=== PATIENT | female | born 1980 ===

== ENCOUNTER 2025-03-18 15:06 | Emergency (ER) | payer BC, SELFPAY ==
--- NOTE | ~2025-03-18 | XR_ITS ---
EXAMINATION: XR chest 2V, 03/18/2025 15:36 CDT HISTORY: dyspnea, SOB x 3 days, weakness and cough COMPARISON: No comparisons available. Technique: 2 views obtained. Findings: Large left basilar infiltrate and effusion, underlying mass not excluded. No pneumothorax. Heart is normal size. Mediastinal and hilar contours are within normal limits. Bony thorax no acute abnormality. Impression: Left lower lobe pneumonia. CT chest with contrast is suggested Reviewed, dictated and finalized at location P. Impression: Left lower lobe pneumonia. CT chest with contrast is suggested
--- NOTE | 2025-03-18 15:10 | ECG_ITS ---
Test Date: 2025-03-18 15:30:39 Measurements Intervals [place] Rate: 113 P: 32 MA: 96 QRS: 33 QRSD: 66 T: 2 QT: 327 QTc: 449 Interpretive Statements SINUS TACHYCARDIA WITH SHORT MA INTERVAL LOW QRS VOLTAGE IN PRECORDIAL LEADS BORDERLINE ST-T WAVE ABNORMALITY- ANTEROLAT/INF LEADS BASELINE ARTIFACT- I, II, III, AVR, AVL, AVF, V1, V4-V6 ABNORMAL ECG No previous ECG available for comparison Electronically Signed On 03-18-2025 16:39:59 CDT by Kwan Dumont D.O.
[2025-03-18 15:20] VITALS: BP 154/103; PULSE 113; RESP 22; TEMP 36.6; O2SAT 99
--- NOTE | 2025-03-18 16:01 | ED.SOB ---
HPI - SOB/Dyspnea General Chief Complaint: Upper Respiratory Infection Stated Complaint: Breathing Problems/Weakness Time Seen by Provider: 03/18/25 15:45 Source: patient and RN notes reviewed Mode of arrival: ambulatory Limitations: no limitations History of Present Illness HPI Narrative: 45-year-old female presents to the [facility] complaining of shortness of breath for the last 3 days. Patient reports a nonproductive cough, tactile fevers and orthopnea. Patient reports she short of breath with exertion or when she has to talk for a prolonged period of time. Patient denies any chest pain, nausea vomiting, diarrhea, abdominal pain, any other upper respiratory symptoms, or any other symptoms. She also reports that she has lost about 10-15 lb over the last few months. Patient denies any significant past medical history. Patient denies any recent travel out of the country. Related Data Allergies Allergy/AdvReac Type Severity Reaction Status Date / Time No Known Allergies Allergy Verified 03/18/25 15:21 Review of Systems Review of Systems: CONSTITUTIONAL: Denies fever, chills, body aches, or sweats. EYES: Denies visual changes, redness, or discharge. ENT: Denies rhinorrhea, congestion, sore throat, or otalgia. CARDIOVASCULAR: Denies chest pain, palpitations, dizziness, lightheadedness, or edema. RESPIRATORY: Positive for cough, dyspnea and orthopnea. GASTROINTESTINAL: Denies abdominal pain, nausea, vomiting, or diarrhea. GENITOURINARY: Denies dysuria or hematuria. SKIN: Denies rash or itching. MUSCULOSKELETAL: Denies back pain, joint pain, or myalgia. NEUROLOGIC: Denies headache, numbness, or weakness. PSYCHIATRIC: Denies anxiety or depression. All other systems reviewed are negative, except as documented in HPI. PMFSH Comments At the time of my signature, I reviewed and agree with the nursing past medical, surgical, social, and family history. There is no relevant family history pertinent to the patient complaint. Exam Narrative: GENERAL: This is a well-nourished, well-developed adult, in no apparent distress. They are non ill-appearing, nontoxic appearing. HEAD: normocephalic, atraumatic. EYES: Sclera clear/white. Conjunctiva normal. Vision is grossly intact. Extraocular movements intact EARS: External ears normal, auditory canals clear and without drainage, TMs normal without perforation. Hearing grossly intact. NOSE: External nose normal with no obvious nasal discharge, nasal turbinates without redness, no rhinorrhea. THROAT: Mucous membranes moist, posterior pharynx clear, without erythema or swelling. Uvula midline. NECK: Neck supple, non-tender without lymphadenopathy, masses or thyromegaly. CARDIOVASCULAR: Tachycardic rate and rhythm without murmurs, gallops, or rubs. RESPIRATORY: Left mid and lower lung lung sounds are absent.. Right lung clear to auscultation. No wheezes, rales, or rhonchi. SKIN: warm, Dry, intact with no suspicious lesions or rash, good texture and turgor. NEURO: awake, alert, and oriented to person, place and time. There were no obvious focal neurologic abnormalities. EXTREMITIES: No joint tenderness, effusion, or edema noted. BACK: Nontender without deformity. Course Course Emergency Course: Portions of this record may have been created with voice recognition software Level of Care: Express Care Visit Vital Signs Vital signs: Vital Signs Temperature 97.9 F 03/18/25 15:20 Pulse Rate 113 H 03/18/25 15:20 Respiratory Rate 22 H 03/18/25 15:20 Blood Pressure 154/103 H 03/18/25 15:20 Pulse Oximetry 99 03/18/25 15:20 Oxygen Delivery Room Air 03/18/25 15:20 Temperature 97.9 F 03/18/25 15:20 Pulse Rate 113 H 03/18/25 15:20 Respiratory Rate 22 H 03/18/25 15:20 Blood Pressure 154/103 H 03/18/25 15:20 Pulse Oximetry 99 03/18/25 15:20 Oxygen Delivery Room Air 03/18/25 15:22 Reviewed Transfer Transfered to: [facility]: Other (Private vehicle) Transfer rationale: Large left pleural effusion/pneumonia. Patient requires higher level care. Accepting physician: Dr. Shahid MDM - SOB/Dyspnea MDM Narrative Medical decision making narrative: Patient's lung sounds absent to left mid/lower lung. EKG sinus tach without any ischemic findings. Chest x-ray shows large left pleural effusion with pneumonia. Patient is slightly tachycardic at 1:13 a.m., oxygen saturations are normal on 99% on room air the patient's vital signs otherwise hemodynamically stable. Given patient's symptoms and findings, it is recommend the patient seek a higher level care and proceed immediately to the emergency department. Patient is agreeable to go to [facility]. Called over to [facility] and spoke with Dr. Shahid who is aware this patient accepted the patient for transfer. Recommend the patient go by ambulance in offered her an ambulance transfer to the hospital and she declined stating her will take her via private vehicle. Advised patient if any change in condition occurs in route to the hospital to pack puller and call 911 immediately. Patient verbalized understanding. Patient advised to remain NPO and proceed immediately to the ER. Patient hemodynamically stable to transfer herself to the hospital. Differential Diagnosis Differential diagnosis: Likely congestive heart failure, community acquired pneumonia, pulmonary embolism and other (Pleural effusion, empyema, lung mass, atelectasis, pneumothorax, hemothorax) Imaging Data Radiologist's impression: ITS Impressions Chest X-Ray 03/18/25 15:46 Impression: Left lower lobe pneumonia. CT chest with contrast is suggested ECG Data EKG #1: Attestation: I personally reviewed and interpreted this ECG as follows: ECG completion date: 03/18/25 ECG completion time: 15:30 Prior ECG tracings: not available for review Interpretation: Nonspecific T abnormalities, abnormal EKG. EKG Interpretation: normal rate, tachycardia, sinus rhythm, no ectopy, no ST changes, normal QRS and normal QT Critical Care Time Critical Care Time Critical Care Time: No Discharge Plan Discharge Clinical Impression: Shortness of breath, Large pleural effusion Patient Disposition: Acute Care Hospital Condition: Stable Patient Language: Urdu Follow-up/Referrals: PHYSICIAN,COIN MACHINE SERVICE REPAIRER [Primary Care Provider, Internal Medicine] Time of Disposition: 16:09
== END 2025-03-18 16:13 | disposition short-term general hospital (02) ==
DX: R06.02 Shortness of breath (principal); J90 Pleural effusion, not elsewhere classified
CPT/HCPCS: 71046; 93005; 99213; G0463

== ENCOUNTER 2025-03-18 16:23 | Emergency (ER) | payer BC, SELFPAY ==
[2025-03-18] VITALS (7 sets, daily range): BP systolic 61–138; BP diastolic 54–97; PULSE 97–111; RESP 18–22; TEMP 36.1–36.7; O2SAT 99–100
--- NOTE | ~2025-03-18 | CT_ITS ---
EXAMINATION: CTA chest PE protocol DATE: 03/18/2025 20:04 INDICATION: Left lower lobe pneumonia. Tachycardia. TECHNIQUE: Computed tomography (CT) pulmonary angiogram of the chest was performed with 100 mL Omnipaque-350 intravenous contrast. Additional 3D reconstructions utilizing coronal maximum intensity projection (MIP) were performed. Automated exposure control and iterative reconstruction technique were employed. The dose-length product was 348.09 mGy-cm. COMPARISON: None FINDINGS: No pulmonary embolism. Sensitivity decreased in some of the smaller subsegmental pulmonary arteries due to moderate amount of respiratory motion. Large left pleural effusion. There is near complete collapse of the left lower lobe and partial collapse of the left upper lobe and lingula. There is relative homogeneous parenchymal enhancement in the atelectatic portions of the left lung with no evident pulmonary infarct. No pneumonia or pulmonary edema in the aerated portions of the lungs. No right-sided pleural effusion. Heart size is normal. The heart and mediastinum are shifted towards the right likely due to the presence of the large right pleural effusion which also depresses the left hemidiaphragm. No pericardial effusion. Thoracic aorta is normal in caliber with no dissection. There is an enlarged right epicardial lymph node measuring 1.2 cm in maximal diameter. No other pathologically enlarged thoracic lymphadenopathy. There are a few additional enlarged right internal jugular chain lymph nodes measuring up to 1.4 cm in maximal diameter. There is a moderate amount of ascites in the visual estimate of abdomen. There is additional enlarged retroperitoneal lymphadenopathy in the upper abdomen. IMPRESSION: 1. No pulmonary embolism. Sensitivity decreased in some of the smaller subsegmental pulmonary arteries due to moderate scattered respiratory motion artifact. 2. Large left pleural effusion which results in some degree of tension physiology with rightward shift of the heart and mediastinum and depression of the left hemidiaphragm. 3. Partial collapse of the left lung with no evident infarct in the collapsed portion of the lungs or evident pulmonary edema or pneumonia in the aerated portions the lungs. 4. Left internal jugular chain, right epicardial and upper abdominal retroperitoneal lymphadenopathy which raises concern for lymphoma or metastatic disease. Would consider dedicated contrast-enhanced CT of the abdomen and pelvis for further evaluation. 5. Moderate amount of ascites in the visualized upper abdomen. Reviewed, dictated and finalized at location A. IMPRESSION: 1. No pulmonary embolism. Sensitivity decreased in some of the smaller subsegme ntal pulmonary arteries due to moderate scattered respiratory motion artifact. 2. Large left pleural effusion which results in some degree of tension physiolo gy with rightward shift of the heart and mediastinum and depression of the left hemidiaphragm. 3. Partial collapse of the left lung with no evident infarct in the collapsed p ortion of the lungs or evident pulmonary edema or pneumonia in the aerated port ions the lungs. 4. Left internal jugular chain, right epicardial and upper abdominal retroperit [place] lymphadenopathy which raises concern for lymphoma or metastatic disease. Would consider dedicated contrast-enhanced CT of the abdomen and pelvis for fur ther evaluation. 5. Moderate amount of ascites in the visualized upper abdomen.
--- NOTE | ~2025-03-18 | CT_ITS ---
EXAMINATION: CT abdomen pelvis w con DATE: 03/18/2025 20:41 INDICATION: Possible metastatic disease TECHNIQUE: Computed tomography (CT) of the abdomen and pelvis was performed with 100 mL Omnipaque-350 intravenous contrast. Automated exposure control and iterative reconstruction technique were employed. The dose-length product was 739.58 mGy-cm. COMPARISON: CT dated 03/18/2025 FINDINGS: Again noted is a large left pleural effusion with rightward shift of the normal sized heart and depression of the left hemidiaphragm. Partial collapse of the left lung. No pericardial or left pleural effusion. Liver, gallbladder, spleen, pancreas, bilateral adrenal glands and kidneys are normal. Excreted contrast in the renal collecting systems, extending along the course of the bilateral ureters and filling the incompletely distended otherwise normal bladder. Normal appendix. No bowel obstruction. Moderate amount of ascites throughout the abdomen and pelvis with peritoneal carcinomatosis with multiple heterogeneous enhancing deposits of soft tissue density in the largest in the cul-de-sac measuring approximately 11.4 x 9.9 x 10.4 cm which exerts mass effect upon the more anterior anteverted uterus. The bilateral ovaries are unable to be distinguished from the peritoneal implants. There are smaller implants scattered throughout the lower abdomen and greater omentum, one of which measuring approx imately 4.4 x 3.1 cm along the left lower quadrant anterior abdominal wall which would be a suitable site for ultrasound-guided percutaneous biopsy. Retroperitoneal lymphadenopathy along the anterior abdominal aorta and inferior vena cava also concerning for metastatic disease. Bones are unremarkable no suspicious lytic or blastic bone lesions. IMPRESSION: 1. Moderate amount of ascites in the abdomen and pelvis with peroneal carcinomatosis including large mass in the pelvis concerning for malignancy. Consider diagnostic thoracentesis and/or ultrasound guided percutaneous biopsy of a peritoneal implant along the anterior abdominal wall the left lower quad rant. 2. Large left pleural effusion with partial collapse of the left lung which is also rightward shift of the heart and mediastinum and depression of the left hemidiaphragm. Consider therapeutic thoracentesis. 3. Or abdominal retroperitoneal lymphadenopathy suspicious for metastatic disease. Reviewed, dictated and finalized at location A. IMPRESSION: 1. Moderate amount of ascites in the abdomen and pelvis with peroneal carcinoma tosis including large mass in the pelvis concerning for malignancy. Consider di agnostic thoracentesis and/or ultrasound guided percutaneous biopsy of a perito suki implant along the anterior abdominal wall the left lower quadrant. 2. Large left pleural effusion with partial collapse of the left lung which is also rightward shift of the heart and mediastinum and depression of the left he midiaphragm. Consider therapeutic thoracentesis. 3. Or abdominal retroperitoneal lymphadenopathy suspicious for metastatic disea se.
--- NOTE | 2025-03-18 16:27 | ED.SOB ---
HPI - SOB/Dyspnea General Chief Complaint: Shortness of Breath/Dyspnea <MELISA Marie - Last Filed: 03/18/25 16:34> Stated Complaint: CXR --> PNEUMONIA FROM [facility] <MELISA Marie - Last Filed: 03/18/25 16:34> Time Seen by Provider: 03/18/25 16:27 <MELISA Marie - Last Filed: 03/18/25 16:34> Focused HPI: This 45 year old female is sent here from [facility] with dyspnea for three days made worse by activity or laying flat. She has had subjective fevers and the dyspnea is made worse with talking and coughing. She has had a 10-15 lb weight loss over the past few months non-intentionally with loss of appetite and not feeling any hunger. Her cough is not productive. CXR was performed at [facility] due to documented absent breath sounds on the left side and CXR showed a LLL PNA with suggestion for CT chest with contrast. She denies any CP. No recent travel and no ill contacts that she is aware of citing she works from home. GENERAL: Well-appearing, well-nourished, and in no acute distress. Speaking in full, unbroken sentences. HEAD: Normocephalic, atraumatic. CHEST: Lung sounds are Diminished in [place] and LLL, but worse in LLL. HEART: Tachycardic rate and regular rhythm.? NEURO: ?Alert and oriented x3. Patient screened in triage and initial orders placed.? ?Additional care and disposition to be based upon?diagnostic testing and treatment. <MELISA Marie - Last Filed: 03/18/25 16:34> Source: patient and family <MELISA Marie - Last Filed: 03/18/25 16:34> Mode of arrival: ambulatory <MELISA Marie - Last Filed: 03/18/25 16:34> Limitations: no limitations <MELISA Marie Last Filed: 03/18/25 16:34> History of Present Illness HPI Narrative: Agree with HPI. Immigrated here 2 years ago, had mandatory vaccinations but does not recall what they were. <Margarito Reagan MD - Last Filed: 03/18/25 23:47> Related Data Allergies/Adverse Reactions: Allergies Allergy/AdvReac Type Severity Reaction Status Date / Time No Known Allergies Allergy Verified 03/18/25 18:12 <Martina Sanchez APN-Paul - Last Filed: 03/18/25 16:34> Review of Systems Review of Systems: Gen.: Denies fevers or chills Eyes: Denies eye pain or visual change ENT: Denies congestion Respiratory: As per HPI CV: Denies chest pain or palpitations GI: Denies abdominal pain nausea, emesis or diarrhea denies burning, urgency, frequency or hematuria Musculoskeletal: Denies back pain or muscle pain Neuro: Denies numbness, tingling, weakness or focal weakness Skin: Denies rash Except as documented, all other systems reviewed and negative <Margarito Reagan MD - Last Filed: 03/18/25 23:47> Exam Narrative: APPEARANCE: No acute distress, nontoxic, resting in bed EYES: EOMI HEENT: Normocephalic, atraumatic, OMM RESPIRATORY: No respiratory distress diminished breath sounds to the left lower and middle lung [place]. CARDIOVASCULAR: Tachycardic with regular rhythm without murmurs rubs or gallops. ABDOMINAL: Soft, nontender, nondistended, no rebound or guarding MUSCULOSKELETAl: Moves all extremities. No clubbing, cyanosis or edema. NEURO: Awake and alert. Following commands, speech normal, no focal deficits SKIN:: Warm, dry. No rashes lesions or abrasions PSYCHIATRIC: Normal affect/mood, <Margarito Reagan MD - Last Filed: 03/18/25 23:47> Course Vital Signs Vital signs: Vital Signs Temperature 97.0 F L 03/18/25 16:27 Pulse Rate 111 H 03/18/25 16:27 Respiratory Rate 20 03/18/25 16:27 Blood Pressure 124/79 03/18/25 16:27 Pulse Oximetry 100 03/18/25 16:27 Oxygen Delivery Room Air 03/18/25 16:27 Temperature 98.0 F 03/18/25 23:43 Pulse Rate 97 03/18/25 23:43 Respiratory Rate 18 03/18/25 23:43 Blood Pressure 130/87 03/18/25 23:43 Pulse Oximetry 99 03/18/25 23:43 Oxygen Delivery Room Air 03/18/25 18:13 <MELISA Marie - Last Filed: 03/18/25 16:34> Vital Signs Temperature 97.0 F L 03/18/25 16:27 Pulse Rate 111 H 03/18/25 16:27 Respiratory Rate 20 03/18/25 16:27 Blood Pressure 124/79 03/18/25 16:27 Pulse Oximetry 100 03/18/25 16:27 Oxygen Delivery Room Air 03/18/25 16:27 Temperature 98.0 F 03/18/25 23:43 Pulse Rate 97 03/18/25 23:43 Respiratory Rate 18 03/18/25 23:43 Blood Pressure 130/87 03/18/25 23:43 Pulse Oximetry 99 03/18/25 23:43 Oxygen Delivery Room Air 03/18/25 18:13 <Margarito Reagan MD - Last Filed: 03/18/25 23:47> MDM - SOB/Dyspnea MDM Narrative Medical decision making narrative: MSE by ADAN in triage. 45-year-old female Presenting for shortness of breath. On initial evaluation patient was in no acute distress afebrile, hemodynamic stable. She was satting 99-100% on room air. Differentials include but are not limited to: ACS, CHF Exacerbation, COPD exacerbation, PE, PNA, PTX, bronchitis, viral syndrome Notable exam findings: Diminished breath sounds to the left lower and middle lobes. Notable lab findings: Slight anemia at 11.4. Mild EMILI with creatinine at 1.13. LDH elevated at 390. HCG quant negative. Notable imaging findings: CTA chest showed a large left pleural effusion with some degree of tension physiology with rightward shift of the heart and mediastinum and depression of the left hemidiaphragm as well as a retroperitoneal lymphadenopathy concerning for metastatic disease, moderate ascites in the upper abdomen. CT abdomen/pelvis subsequently obtained which showed peritoneal carcinomatosis including large mass in the pelvis concerning for a malignancy. Given the pelvic mass, patient would potentially benefit from Gyne Onc evaluation. Given the large pleural effusion in the setting of a new cancer, she would benefit from transfer for higher level of care. I discussed with patient the potential for transfer and her and family would prefer [facility]. I spoke with Dr. Livingston, oilfield plant and field operator Onc, at [facility] to will accept the patient as a direct admit. Patient transferred in a stable condition. <Margarito Reagan MD - Last Filed: 03/18/25 23:47> Differential Diagnosis Differential diagnosis: Likely community acquired pneumonia, pulmonary embolism and other (Pleural effusion, CHF) <Margarito Reagan MD - Last Filed: 03/18/25 23:47> Medical Records Attestation: I reviewed the patient's medical records. <Margarito Reagan MD - Last Filed: 03/18/25 23:47> Medical records narrative: Chest x-ray from urgent care revealed, read as concerning for pneumonia, did appear to be more of a pleural effusion on the left on my review <Margarito Reagan MD - Last Filed: 03/18/25 23:47> Lab Data Attestation: I reviewed the patient's lab results. <Margarito Reagan MD - Last Filed: 03/18/25 23:47> Result diagrams: 03/18/25 17:23 03/18/25 17:23 <MELISA Marie - Last Filed: 03/18/25 16:34> Labs: Lab Results 03/18/25 03/18/25 03/18/25 Range/Units 17:23 19:16 19:23 WBC 7.4 (4.5-10.0) K/mm3 RBC 4.13 L (4.2-5.4) M/mm3 Hgb 11.4 L (12.0-15.0) g/dL Hct 35.8 L (37.0-47.0) % MCV 86.7 (80-100) fl MCH 27.6 (26-34) pg MCHC 31.8 L (32-36) g/dl RDW 14.6 H (11.5-14.5) % Plt Count 317 (150-375) k/mm3 MPV 12.2 H (7.4-10.4) fl Immature Gran % (Auto) 0.4 (0-0.5) % Neut % (Auto) 73.9 H (45.5-73.1) % Lymph % (Auto) 18.1 L (18.3-44.2) % [place] % (Auto) 6.8 (2.6-8.5) % Eos % (Auto) 0.4 (0-4.4) % Baso % (Auto) 0.4 (0.2-1.2) % Lymph # (Auto) 1.34 (0.9-3.2) K/mm3 [place] # (Auto) 0.5 (0.1-0.6) K/mm3 Eos # (Auto) 0.0 (0-0.3) K/mm3 Baso # (Auto) 0.0 (0.0-0.1) K/mm3 Abs Immat Gran (auto) 0.03 (0.00-0.031) K/mm3 Absolute Neuts (auto) 5.5 (1.3-6.7) K/mm3 Absolute Nucleated RBC 0.000 (0.0-0.012) K/mm3 Nucleated RBC % 0.0 (0.0-0.2) % PT 14.7 (11.1-14.7) Seconds INR 1.2 APTT 28.6 (22.3-36.8) Seconds Sodium 134 L (137-145) mmol/L Potassium 5.0 (3.4-5.0) mmol/L Chloride 104 (98-107) mmol/L Carbon Dioxide 22 (22-30) mmol/L Anion Gap 8 (4-12) mmol/L BUN 21 H (7-17) mg/dL Creatinine 1.13 H (0.7-1.0) mg/dL Estim Creat Clear Calc 58 ml/min Estimated GFR 53 L (59 - ) Glucose 97 (65-110) mg/dL Lactic Acid 1.3 (0.7-2.0) mmol/L Calcium 9.0 (8.4-10.2) mg/dL Total Bilirubin 1.2 (0.2-1.3) mg/dL AST 46 H (14-36) U/L ALT 12 (6-35) U/L Alkaline Phosphatase 132 H (38-126) U/L Lactate Dehydrogenase 390 H (120-246) U/L Total Protein 8.1 (6.3-8.2) g/dL Albumin 4.4 (3.5-5.1) g/dL Tumor Marker AFP CA 125 Antigen Procalcitonin 0.2 ng/mL Serum HCG, Qual Negative Beta HCG, Quant < 2.39 Cancelled mIU/ML Urine Color Dark yellow (Yellow) Urine Appearance Cloudy H (Clear) Urine pH 5.0 (5.0-9.0) Ur Specific [place] 1.028 (1.001-1.035) Urine Protein 1+ H (Negative) mg/dL Urine Glucose (UA) Negative (Negative) mg/dL Urine Ketones Trace H (Negative) mg/dL Ur Blood (Man) Negative (Negative) Urine Nitrate Negative (Negative) Urine Bilirubin 1+ H (Negative) Urine Urobilinogen 1.0 (<2.0) mg/dL Leukocyte Esterase Rfl 1+ H (Negative) CORI/UL Urine RBC 6-10 H (0-2) /hpf Urine WBC 11-20 H (0-3) /hpf Ur Squamous Epith Cells Few (Few) /hpf Urine Bacteria None seen /hpf Urine Casts 11-20 Hyaline Casts Present (None) /lpf POC Urine HCG, Qual Positive (Negative) 03/18/25 Range/Units 20:59 WBC (4.5-10.0) K/mm3 RBC (4.2-5.4) M/mm3 Hgb (12.0-15.0) g/dL Hct (37.0-47.0) % MCV (80-100) fl MCH (26-34) pg MCHC (32-36) g/dl RDW (11.5-14.5) % Plt Count (150-375) k/mm3 MPV (7.4-10.4) fl Immature Gran % (Auto) (0-0.5) % Neut % (Auto) (45.5-73.1) % Lymph % (Auto) (18.3-44.2) % [place] % (Auto) (2.6-8.5) % Eos % (Auto) (0-4.4) % Baso % (Auto) (0.2-1.2) % Lymph # (Auto) (0.9-3.2) K/mm3 [place] # (Auto) (0.1-0.6) K/mm3 Eos # (Auto) (0-0.3) K/mm3 Baso # (Auto) (0.0-0.1) K/mm3 Abs Immat Gran (auto) (0.00-0.031) K/mm3 Absolute Neuts (auto) (1.3-6.7) K/mm3 Absolute Nucleated RBC (0.0-0.012) K/mm3 Nucleated RBC % (0.0-0.2) % PT (11.1-14.7) Seconds INR APTT (22.3-36.8) Seconds Sodium (137-145) mmol/L Potassium (3.4-5.0) mmol/L Chloride (98-107) mmol/L Carbon Dioxide (22-30) mmol/L Anion Gap (4-12) mmol/L BUN (7-17) mg/dL Creatinine (0.7-1.0) mg/dL Estim Creat Clear Calc ml/min Estimated GFR (59 - ) Glucose (65-110) mg/dL Lactic Acid (0.7-2.0) mmol/L Calcium (8.4-10.2) mg/dL Total Bilirubin (0.2-1.3) mg/dL AST (14-36) U/L ALT (6-35) U/L Alkaline Phosphatase (38-126) U/L Lactate Dehydrogenase (120-246) U/L Total Protein (6.3-8.2) g/dL Albumin (3.5-5.1) g/dL Tumor Marker AFP Pending CA 125 Antigen Pending Procalcitonin ng/mL Serum HCG, Qual Beta HCG, Quant mIU/ML Urine Color (Yellow) Urine Appearance (Clear) Urine pH (5.0-9.0) Ur Specific [place] (1.001-1.035) Urine Protein (Negative) mg/dL Urine Glucose (UA) (Negative) mg/dL Urine Ketones (Negative) mg/dL Ur Blood (Man) (Negative) Urine Nitrate (Negative) Urine Bilirubin (Negative) Urine Urobilinogen (<2.0) mg/dL Leukocyte Esterase Rfl (Negative) CORI/UL Urine RBC (0-2) /hpf Urine WBC (0-3) /hpf Ur Squamous Epith Cells (Few) /hpf Urine Bacteria /hpf Urine Casts Hyaline Casts (None) /lpf POC Urine HCG, Qual (Negative) <Martina Sanchez APN-Paul - Last Filed: 03/18/25 16:34> Lab Results 03/18/25 03/18/25 03/18/25 Range/Units 17:23 19:16 19:23 WBC 7.4 (4.5-10.0) K/mm3 RBC 4.13 L (4.2-5.4) M/mm3 Hgb 11.4 L (12.0-15.0) g/dL Hct 35.8 L (37.0-47.0) % MCV 86.7 (80-100) fl MCH 27.6 (26-34) pg MCHC 31.8 L (32-36) g/dl RDW 14.6 H (11.5-14.5) % Plt Count 317 (150-375) k/mm3 MPV 12.2 H (7.4-10.4) fl Immature Gran % (Auto) 0.4 (0-0.5) % Neut % (Auto) 73.9 H (45.5-73.1) % Lymph % (Auto) 18.1 L (18.3-44.2) % [place] % (Auto) 6.8 (2.6-8.5) % Eos % (Auto) 0.4 (0-4.4) % Baso % (Auto) 0.4 (0.2-1.2) % Lymph # (Auto) 1.34 (0.9-3.2) K/mm3 [place] # (Auto) 0.5 (0.1-0.6) K/mm3 Eos # (Auto) 0.0 (0-0.3) K/mm3 Baso # (Auto) 0.0 (0.0-0.1) K/mm3 Abs Immat Gran (auto) 0.03 (0.00-0.031) K/mm3 Absolute Neuts (auto) 5.5 (1.3-6.7) K/mm3 Absolute Nucleated RBC 0.000 (0.0-0.012) K/mm3 Nucleated RBC % 0.0 (0.0-0.2) % PT 14.7 (11.1-14.7) Seconds INR 1.2 APTT 28.6 (22.3-36.8) Seconds Sodium 134 L (137-145) mmol/L Potassium 5.0 (3.4-5.0) mmol/L Chloride 104 (98-107) mmol/L Carbon Dioxide 22 (22-30) mmol/L Anion Gap 8 (4-12) mmol/L BUN 21 H (7-17) mg/dL Creatinine 1.13 H (0.7-1.0) mg/dL Estim Creat Clear Calc 58 ml/min Estimated GFR 53 L (59 - ) Glucose 97 (65-110) mg/dL Lactic Acid 1.3 (0.7-2.0) mmol/L Calcium 9.0 (8.4-10.2) mg/dL Total Bilirubin 1.2 (0.2-1.3) mg/dL AST 46 H (14-36) U/L ALT 12 (6-35) U/L Alkaline Phosphatase 132 H (38-126) U/L Lactate Dehydrogenase 390 H (120-246) U/L Total Protein 8.1 (6.3-8.2) g/dL Albumin 4.4 (3.5-5.1) g/dL Tumor Marker AFP CA 125 Antigen Procalcitonin 0.2 ng/mL Serum HCG, Qual Negative Beta HCG, Quant < 2.39 Cancelled mIU/ML Urine Color Dark yellow (Yellow) Urine Appearance Cloudy H (Clear) Urine pH 5.0 (5.0-9.0) Ur Specific [place] 1.028 (1.001-1.035) Urine Protein 1+ H (Negative) mg/dL Urine Glucose (UA) Negative (Negative) mg/dL Urine Ketones Trace H (Negative) mg/dL Ur Blood (Man) Negative (Negative) Urine Nitrate Negative (Negative) Urine Bilirubin 1+ H (Negative) Urine Urobilinogen 1.0 (<2.0) mg/dL Leukocyte Esterase Rfl 1+ H (Negative) CORI/UL Urine RBC 6-10 H (0-2) /hpf Urine WBC 11-20 H (0-3) /hpf Ur Squamous Epith Cells Few (Few) /hpf Urine Bacteria None seen /hpf Urine Casts 11-20 Hyaline Casts Present (None) /lpf POC Urine HCG, Qual Positive (Negative) 03/18/25 Range/Units 20:59 WBC (4.5-10.0) K/mm3 RBC (4.2-5.4) M/mm3 Hgb (12.0-15.0) g/dL Hct (37.0-47.0) % MCV (80-100) fl MCH (26-34) pg MCHC (32-36) g/dl RDW (11.5-14.5) % Plt Count (150-375) k/mm3 MPV (7.4-10.4) fl Immature Gran % (Auto) (0-0.5) % Neut % (Auto) (45.5-73.1) % Lymph % (Auto) (18.3-44.2) % [place] % (Auto) (2.6-8.5) % Eos % (Auto) (0-4.4) % Baso % (Auto) (0.2-1.2) % Lymph # (Auto) (0.9-3.2) K/mm3 [place] # (Auto) (0.1-0.6) K/mm3 Eos # (Auto) (0-0.3) K/mm3 Baso # (Auto) (0.0-0.1) K/mm3 Abs Immat Gran (auto) (0.00-0.031) K/mm3 Absolute Neuts (auto) (1.3-6.7) K/mm3 Absolute Nucleated RBC (0.0-0.012) K/mm3 Nucleated RBC % (0.0-0.2) % PT (11.1-14.7) Seconds INR APTT (22.3-36.8) Seconds Sodium (137-145) mmol/L Potassium (3.4-5.0) mmol/L Chloride (98-107) mmol/L Carbon Dioxide (22-30) mmol/L Anion Gap (4-12) mmol/L BUN (7-17) mg/dL Creatinine (0.7-1.0) mg/dL Estim Creat Clear Calc ml/min Estimated GFR (59 - ) Glucose (65-110) mg/dL Lactic Acid (0.7-2.0) mmol/L Calcium (8.4-10.2) mg/dL Total Bilirubin (0.2-1.3) mg/dL AST (14-36) U/L ALT (6-35) U/L Alkaline Phosphatase (38-126) U/L Lactate Dehydrogenase (120-246) U/L Total Protein (6.3-8.2) g/dL Albumin (3.5-5.1) g/dL Tumor Marker AFP Pending CA 125 Antigen Pending Procalcitonin ng/mL Serum HCG, Qual Beta HCG, Quant mIU/ML Urine Color (Yellow) Urine Appearance (Clear) Urine pH (5.0-9.0) Ur Specific [place] (1.001-1.035) Urine Protein (Negative) mg/dL Urine Glucose (UA) (Negative) mg/dL Urine Ketones (Negative) mg/dL Ur Blood (Man) (Negative) Urine Nitrate (Negative) Urine Bilirubin (Negative) Urine Urobilinogen (<2.0) mg/dL Leukocyte Esterase Rfl (Negative) CORI/UL Urine RBC (0-2) /hpf Urine WBC (0-3) /hpf Ur Squamous Epith Cells (Few) /hpf Urine Bacteria /hpf Urine Casts Hyaline Casts (None) /lpf POC Urine HCG, Qual (Negative) <Margarito Reagan MD - Last Filed: 03/18/25 23:47> Imaging Data Attestation: I personally reviewed and interpreted this imaging study as follows: <Margarito Reagan MD - Last Filed: 03/18/25 23:47> My impression: CTA chest: Large volume pleural effusion to the left lobe CT abdomen/pelvis: Ascites with large pelvic mass <Margarito Reagan MD - Last Filed: 03/18/25 23:47> Radiologist's impression: Impressions Chest CTA 03/18/25 20:08 IMPRESSION: 1. No pulmonary embolism. Sensitivity decreased in some of the smaller subsegmental pulmonary arteries due to moderate scattered respiratory motion artifact. 2. Large left pleural effusion which results in some degree of tension physiology with rightward shift of the heart and mediastinum and depression of the left hemidiaphragm. 3. Partial collapse of the left lung with no evident infarct in the collapsed portion of the lungs or evident pulmonary edema or pneumonia in the aerated portions the lungs. 4. Left internal jugular chain, right epicardial and upper abdominal retroperitoneal lymphadenopathy which raises concern for lymphoma or metastatic disease. Would consider dedicated contrast-enhanced CT of the abdomen and pelvis for further evaluation. 5. Moderate amount of ascites in the visualized upper abdomen. Abdomen/Pelvis CT 03/18/25 20:54 IMPRESSION: 1. Moderate amount of ascites in the abdomen and pelvis with peroneal carcinomatosis including large mass in the pelvis concerning for malignancy. Consider diagnostic thoracentesis and/or ultrasound guided percutaneous biopsy of a peritoneal implant along the anterior abdominal wall the left lower quadrant. 2. Large left pleural effusion with partial collapse of the left lung which is also rightward shift of the heart and mediastinum and depression of the left hemidiaphragm. Consider therapeutic thoracentesis. 3. Or abdominal retroperitoneal lymphadenopathy suspicious for metastatic disease. <Margarito Reagan MD - Last Filed: 03/18/25 23:47> Discharge Plan Discharge Clinical Impression: Pleural effusion Abdominal mass Qualifiers: Abdominal location: generalized Qualified Code(s): R19.07 - Generalized intra-abdominal and pelvic swelling, mass and lump Abdominal ascites Qualifiers: Ascites type: malignant Qualified Code(s): R18.0 - Malignant ascites <MELISA Marie - Last Filed: 03/18/25 16:34> Patient Disposition: [facility] <MELISA Marie - Last Filed: 03/18/25 16:34> Condition: Stable <MELISA Marie - Last Filed: 03/18/25 16:34> Patient Language: Malay <MELISA Marie - Last Filed: 03/18/25 16:34> Follow-up/Referrals: PHYSICIAN,BRUSH WORKER [Primary Care Provider, Internal Medicine] <MELISA Marie - Last Filed: 03/18/25 16:34>
--- OUTSIDE RECORDS SUMMARY | 2025-03-18 17:16 | XMS_ITS | Clinical Summary ---
Author Organization [facility] [address] [place] Address [address] [place] [address] Care Team Providers Care Cnc Mill Set Up Operator Name Role Phone Unavailable Primary Care Provider Unavailabl e Encounters Date Type Department Care Team Description 03/12/2025 External Device Data [facility] ABSTRACTION Provider, Abstract 12/25/2024 External Device Data [facility] ABSTRACTION Provider, Abstract from Last 3 Months Social History Tobacco Use Types Packs/Day Years Used Date Smoking Tobacco: Never Assessed Comments Unknown Sex and Gender Information Value Date Recorded Sex Assigned at Not on file Legal 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
[2025-03-18 17:32] LABS: Hematocrit 35.8 % (37.0-47.0); Hemoglobin 11.4 g/dL (12.0-15.0); Immature Granulocyte Percent A 0.4 % (0-0.5); Lymphocytes Absolute Auto 1.34 K/mm3 (0.9-3.2); Mean Corpuscular HGB Conc 31.8 g/dl (32-36); Mean Corpuscular Hemoglobin 27.6 pg (26-34); Mean Corpuscular Volume 86.7 fl (80-100); Nucleated Red Blood Cells Absolute Auto 0.000 K/mm3 (0.0-0.012); Nucleated Red Blood Cells Perc 0.0 % (0.0-0.2); Platelet Count Result 317 k/mm3 (150-375); Red Blood Count 4.13 M/mm3 (4.2-5.4); White Blood Count 7.4 K/mm3 (4.5-10.0)
[2025-03-18 17:43] LABS: Alanine Aminotransferase 12 U/L (6-35); Albumin Level 4.4 g/dL (3.5-5.1); Alkaline Phosphatase 132 U/L (38-126); Anion Gap 8 mmol/L (4-12); Aspartate Amino Transferase 46 U/L (14-36); Bilirubin,Total 1.2 mg/dL (0.2-1.3); Blood Urea Nitrogen 21 mg/dL (7-17); Calcium 9.0 mg/dL (8.4-10.2); Carbon Dioxide 22 mmol/L (22-30); Chloride 104 mmol/L (98-107); Estimated CRCL calculation 58 ml/min; Estimated Glomerular Filt Rate 53; Glucose 97 mg/dL (65-110); INR 1.2; Potassium 5.0 mmol/L (3.4-5.0); Prothrombin Time 14.7 Seconds (11.1-14.7); Sodium 134 mmol/L (137-145); Total Protein 8.1 g/dL (6.3-8.2)
[2025-03-18 17:44] LABS: Partial Thromboplastin Time 28.6 Seconds (22.3-36.8)
[2025-03-18 18:11] LABS: Procalcitonin 0.2 ng/mL
[2025-03-18 19:26] LABS: BEDSIDEPREGUCG Positive (Negative)
[2025-03-18 19:37] LABS: SPREG INTERNAL CONTROL Positive; Serum Qual hCG Negative
[2025-03-18 20:02] LABS: Add Urine Microscopic? YES; Appearance Urine Cloudy (Clear); Glucose Urine UA Negative (Negative); Leukocyte Esterase Ur 1+ LEU/UL (Negative); Nitrate Urine Negative (Negative); Specific Grav Ur 1.028 (1.001-1.035)
[2025-03-18 21:04] LABS: Beta HCG Quantitative < 2.39 mIU/ML
--- NOTE | 2025-03-18 23:23 | PC.NURSE ---
Pt. transferred to hospital bed and pt's family given recliner. Pt. and family educated on [facility] transfer process by EDP.
--- NOTE | 2025-03-18 23:42 | PC.NURSE ---
Report given to KIAH Madrid at [facility] at [id number]
--- NOTE | 2025-03-18 23:54 | PC.NURSE ---
This RN called KIAH Madrdi at [facility] to update about pt's departure from ED
== END 2025-03-18 23:54 | disposition short-term general hospital (02) ==
PROVIDERS: Nurse Practitioner Adult Health; Emergency Provider Student in an Organized Health Care Education/Training Program
DX: J90 Pleural effusion, not elsewhere classified (principal); R18.0 Malignant ascites
CPT/HCPCS: 36415; 71046; 71275; 74177; 80053; 81001; 81025; 82105; 83605; 83615; 84145; 84702; 84703; 85025; 85610; 85730; 86304; 87040; 87086; 93005; 99285; Q9967